=== PATIENT | male | born 1960 | race Caucasian/White ===

== ENCOUNTER 2019-07-31 07:53 | Day surgery (SDC) | payer OTHER ==
[~2019-07-31 07:53] MED LIST: Lactated Ringers 1,000 ML IV SCH
[2019-07-31] MEDS ORDERED: fentaNYL 100 MCG/2 ML SDV ONE (08:37)
[2019-07-31] MEDS ORDERED: Midazolam 1 MG/ML 2 ML SDV ONE (08:37)
[2019-07-31] MEDS ORDERED: Propofol 200 MG/20 ML SDV ONE (08:37)
[2019-07-31] MEDS ORDERED: Lidocaine 2% 5 ML SDV ONE (08:41)
[2019-07-31] MEDS ORDERED: Ketamine 500 mg/10 ML MDV ONE (08:46)
--- NOTE | 2019-07-31 08:54 | PCM.PREANE ---
Preanesthetic Assessment - Anesthesia/Transfusion/Family Hx Anesthesia History: Prior Anesthesia Without Reaction Family History of Anesthesia Reaction: No Transfusion History: No Prior Transfusion(s) - Review of Systems General: No Symptoms Pulmonary: No Symptoms Cardiovascular: No Symptoms Gastrointestinal: No Symptoms Neurological: No Symptoms Other: Reports: None - Physical Assessment NPO Status Date: 07/31/19 NPO Status Time: 07:50 Vital Signs: Last Vital Signs Temp 96.4 F 07/31/19 08:00 Pulse 98 07/31/19 08:00 Resp 20 07/31/19 08:00 BP 152/101 H 07/31/19 08:00 Pulse Ox 98 07/31/19 08:00 Height: 5 ft 9 in Weight: 109.769 kg ASA Class: 2 Mental Status: Alert & Oriented x3 Airway Class: Mallampati = 2 Dentition: Reports: Normal Dentition ROM/Head Extension: Full Lungs: Clear to Auscultation, Normal Respiratory Effort Cardiovascular: Regular Rate, Regular Rhythm - Allergies Allergies/Adverse Reactions: Allergies Allergy/AdvReac Type Severity Reaction Status Date / Time No Known Allergies Allergy Verified 07/25/19 09:43 - Blood Blood Available: No - Anesthesia Plan Pre-Op Medication Ordered: None - Acknowledgements Anesthesia Type Planned: General Anesthesia Pt an Appropriate Candidate for the Planned Anesthesia: Yes Alternatives and Risks of Anesthesia Discussed w Pt/Guardian: Yes Pt/Guardian Understands and Agrees with Anesthesia Plan: Yes Additional Comments: PMH: gerd, PLAN: tiva PreAnesthesia Questionnaire HEENT History: Reports: Allergic Rhinitis Cardiovascular History: Reports: Other (See Below) Other Cardiovascular History: HTN in the past Respiratory History: Reports: None Gastrointestinal History: Reports: Chronic Constipation, Colon Polyp, GERD Genitourinary History: Reports: None Musculoskeletal History: Reports: Arthritis, Neck Pain, Chronic Neurological History: Reports: None Psychiatric History: Reports: Anxiety, Depression Endocrine/Metabolic History: Reports: Obesity/BMI 30+ Hematologic History: Reports: Anemia Immunologic History: Reports: None Oncologic (Cancer) History: Reports: None Dermatologic History: Reports: None - Past Surgical History Head Surgeries/Procedures: Reports: None HEENT Surgical History: Reports: Tonsillectomy Cardiovascular Surgical History: Reports: None Respiratory Surgical History: Reports: None GI Surgical History: Reports: Colonoscopy Male Surgical History: Reports: None Endocrine Surgical History: Reports: None Neurological Surgical History: Reports: None Musculoskeletal Surgical History: Reports: Arthroscopic Knee Oncologic Surgical History: Reports: None Dermatological Surgical History: Reports: None - SUBSTANCE USE Smoking Status *Q: Former Smoker Tobacco Use Within Last Twelve Months: No - HOME MEDS Home Medications: Home Meds Nortriptyline 0 mg PO BEDTIME 08/26/14 [History] Omeprazole 20 mg PO DAILY 08/26/14 [History] Cyclobenzaprine HCl 10 mg PO TID PRN 07/25/19 [History] Voca-3/DHA/Epa/Fish Oil [Fish Oil 500 mg Softgel] 1 tab PO DAILY 07/25/19 [ History] buPROPion HCl [Wellbutrin Xl] 150 mg PO DAILY 07/25/19 [History] - CURRENT (IN HOUSE) MEDS Current Meds: Current Medications Lactated Ringer's (Ringers, Lactated) 1,000 mls @ 125 mls/hr IV ASDIRECTED USAMA Last Admin: 07/31/19 08:15 Dose: 125 mls/hr Discontinued Medications Fentanyl (Sublimaze) Confirm Administered Dose 100 mcg .ROUTE .STK-MED ONE Stop: 07/31/19 08:38 Ketamine HCl (Ketalar) Confirm Administered Dose 500 mg .ROUTE .STK-MED ONE Stop: 07/31/19 08:47 Lidocaine (Xylocaine-Mpf 2%) Confirm Administered Dose 5 ml .ROUTE .STK-MED ONE Stop: 07/31/19 08:42 Midazolam HCl (Versed 1 Mg/Ml) Confirm Administered Dose 2 mg .ROUTE .STK-MED ONE Stop: 07/31/19 08:38 Propofol (Diprivan 20 Ml) Confirm Administered Dose 400 mg .ROUTE .STK-MED ONE Stop: 07/31/19 08:38
[2019-07-31] MEDS ORDERED: fentaNYL 100 MCG/2 ML SDV IVPUSH PRN (09:32)
[2019-07-31] MEDS ORDERED: Ondansetron 4 MG/2 ML SDV IVPUSH PRN ×2 (09:32→10:57)
--- NOTE | 2019-07-31 11:14 | PCM.OPNOTE ---
- General Post-Op/Procedure Note Date of Surgery/Procedure: 07/31/19 Operative Procedure(s): egd w bx. colonoscopy Findings: see [id number] Pre Op Diagnosis: anemia and colon polyp Post-Op Diagnosis: Same Anesthesia Technique: Moderate Sedation Primary Surgeon: Octaviano Hernandez Pathology: egd bx Complications: None Condition: Good
[2019-07-31 11:28] VITALS: BP 143/98; PULSE 81
--- NOTE | 2019-07-31 12:06 | PCM.POSTAN ---
POST ANESTHESIA ASSESSMENT - MENTAL STATUS Mental Status: Alert, Oriented - VITAL SIGNS Vital Signs: Last Vital Signs Temp 96.4 F 07/31/19 11:22 Pulse 81 07/31/19 11:22 Resp 16 07/31/19 11:22 BP 143/98 H 07/31/19 11:22 Pulse Ox 95 07/31/19 11:22 - RESPIRATORY Respiratory Status: Respiratory Rate WNL, Airway Patent, O2 Saturation Stable - CARDIOVASCULAR CV Status: Pulse Rate WNL, Blood Pressure Stable - GASTROINTESTINAL GI Status: No Symptoms - POST OP HYDRATION Hydration Status: Adequate & Stable
--- NOTE | 2019-07-31 12:06 | PCM48HPAN ---
Post Anesthesia Note - EVALUATION WITHIN 48HRS OF ANESTHETIC Vital Signs in Normal Range: Yes Patient Participated in Evaluation: Yes Respiratory Function Stable: Yes Airway Patent: Yes Cardiovascular Function Stable: Yes Hydration Status Stable: Yes Pain Control Satisfactory: Yes Nausea and Vomiting Control Satisfactory: Yes Mental Status Recovered: Yes Vital Signs: Last Vital Signs Temp 96.4 F 07/31/19 11:22 Pulse 81 07/31/19 11:22 Resp 16 07/31/19 11:22 BP 143/98 H 07/31/19 11:22 Pulse Ox 95 07/31/19 11:22
--- NOTE | 2019-07-31 16:23 | OR ---
SURGEON: Octaviano Hernandez MD DATE OF PROCEDURE: 07/31/2019 PREOPERATIVE DIAGNOSES: Anemia and history of colon polyp. POSTOPERATIVE DIAGNOSES: Anemia and history of colon polyp. PROCEDURES PERFORMED: Esophagogastroduodenoscopy with biopsy and colonoscopy. DESCRIPTION OF PROCEDURE: EGD: The patient was taken to the endoscopy room, and with the [employer], Diprivan was administered. A well-lubricated EGD scope was gently inserted through the oropharynx, down the esophagus, passing through the gastroesophageal junction, into the stomach. The mucosa was examined upon the passage. Any etiology will be noted. Once in the stomach, we continued to advance to the distal antrum, passed through the pylorus into the second portion of the duodenum. Again, the mucosa was examined for any abnormality and etiology. The scope was then retrieved back to the stomach and then retroflexed to look at the fundus of the stomach. If a biopsy was indicated, we will biopsy the antrum, body, and gastroesophageal junction. The air will be sucked out while the scope is retrieved to reduce the patient's discomfort. The patient tolerated the procedure well. There were no intraoperative complications. Dr. Hernandez was present through the whole procedure. Prior to surgery, a time-out had been called, the patient identified, procedure identified and antibiotic administered. The patient was taken to the endoscopy room. A time out was called, patient identified, and procedure identified. Diprivan was then administrated. Patient went from awake to sleep, hearing doctor talking or door closing is normal. Perineum inspection and digital examination were then performed. A well- lubricated colonoscope was gently inserted through the rectum, advanced past the rectosigmoid junction, the descending colon, splenic flexure, transverse colon, hepatic flexure, ascending colon, arrived to the cecum. Cecum was identified as dictated in the finding. Then the scope was carefully withdrawn while attention was paid to the mucosal surface for any abnormality. Air will be sucked out during the scope withdrawal. At the rectum, retroflexed to examine any rectal diseases, fistula or hemorrhoids. Patient tolerated procedure well. There were no intraoperative complications, and Dr. Hernandez was present throughout the whole procedure. FINDINGS: EGD findings: 1. The patient is easily sedated with [employer] and Diprivan, the patient is soundly snoring. 2. Oropharynx and proximal esophagus are free of disease and distal esophagus at GE junction at 35 shows minimal acid reflux, but there is obviously a hiatal hernia. The stomach rugae are normal in appearance. Antrum is normal in appearance. Duodenum is grossly normal. Retroflexed look at the fundus of stomach, the patient has a hiatal hernia. Biopsy done at antrum, body, GE junction at 35 and sucked out the gas while scope pulling out. During the whole study, there is no food, bile, blood, or ulcer observed. Colonoscopy findings: 1. The patient is easily sedated with [employer]OR and Diprivan, the patient is soundly snoring. 2. Bowel prep is left to be desirable. Large amount of opaque particle stool and compromised the study. Despite continuous irrigation, this is a compromised study. There are some stool balls too. The patient has mild diverticulosis at the left colon. No signs or symptoms of diverticulitis. Cecum indicated by ileocecal fold, one-to-one indentation, light emittance, and appendiceal orifice. ScopeGuide is pointing south. Mucosa examined upon scope pulling out with constant irrigation. The patient had diverticulosis on the left colon. No polyp, mass, growth, inflammation, stricture, ulceration, AV malformation. The stool is yellow. The patient has minimal external hemorrhoids and minimal internal hemorrhoids. The patient would benefit from repeat colonoscopy in 10 years from today or if clinically indicated otherwise. I think the patient had some polyp 3 years ago, so the patient will need one more 3-year colonoscopy, so the patient's next colonoscopy should be in 3 years. LUCILA / AMY /[id number]
== END 2019-07-31 11:45 | disposition home or self-care (01) ==
LOC: MW.SDS 07:53
PROVIDERS: ATTEND Surgery
DX: D64.9 Anemia, unspecified (principal); K21.0 Gastro-esophageal reflux disease with esophagitis; K44.9 Diaphragmatic hernia without obstruction or gangrene; K29.50 Unspecified chronic gastritis without bleeding; K57.30 Diverticulosis of large intestine without perforation or abscess without bleeding; K64.4 Residual hemorrhoidal skin tags; K64.8 Other hemorrhoids; I10 Essential (primary) hypertension; F32.9 Major depressive disorder, single episode, unspecified; M19.90 Unspecified osteoarthritis, unspecified site; E66.9 Obesity, unspecified; Z86.010 Personal history of colon polyps; Z79.899 Other long term (current) drug therapy; Z87.891 Personal history of nicotine dependence
CPT/HCPCS: 43239; 45378; 88305; 88312; J2001; J2250; J2704; J3010; J7120; 00813